=== PATIENT | female | born 1950 | race Two or more races ===

== ENCOUNTER 2017-11-06 17:03 | Emergency (ER) | payer OTHER ==
[~2017-11-06] VITALS: Ht 157.5 cm; Wt 137.9 kg
[~2017-11-06 17:03] MED LIST: CARVEDILOL3.125 MG PO; CYMBALTA20 MG PO; NEURONTIN600 MG PO; SYNTHROID150 MCG
[2017-11-06] MEDS ORDERED: METFORMIN HCL500 MG (17:32)
== END 2017-11-06 23:49 | disposition home or self-care (01) ==
LOC: ER 17:03
DX: K52.9 Noninfective gastroenteritis and colitis, unspecified (principal)

== ENCOUNTER 2019-01-24 17:47 | Outpatient (CLI) | payer OTHER ==
[~2019-01-24 17:47] MED LIST changes: +METFORMIN HCL500 MG
== END 2019-01-24 17:50 | disposition home or self-care (01) ==
LOC: LAB 17:47
DX: N30.00 Acute cystitis without hematuria (principal)

== ENCOUNTER 2019-01-27 14:12 | Outpatient (CLI) | payer OTHER | END 2019-01-27 14:18 | disposition home or self-care (01) | LOC: LAB 14:12 | DX: N39.0 Urinary tract infection, site not specified (principal); Z51.81 Encounter for therapeutic drug level monitoring ==

== ENCOUNTER 2019-01-30 10:40 | Outpatient (CLI) | payer OTHER | END 2019-01-30 16:21 | disposition home or self-care (01) | LOC: TOM 10:40 | DX: N39.0 Urinary tract infection, site not specified (principal); N39.41 Urge incontinence | CPT/HCPCS: 74178; Q9965 ==

== ENCOUNTER 2019-02-07 14:31 | Outpatient (CLI) | payer OTHER | END 2019-02-07 14:51 | disposition home or self-care (01) | LOC: LAB 14:31 | DX: N30.00 Acute cystitis without hematuria (principal) ==

== ENCOUNTER 2019-07-20 15:12 | Outpatient (CLI) | payer OTHER | END 2019-07-21 08:49 | disposition home or self-care (01) | LOC: LAB 15:12 | DX: N39.0 Urinary tract infection, site not specified (principal); B96.29 Other Escherichia coli [E. coli] as the cause of diseases classified elsewhere ==

== ENCOUNTER → 2019-08-24 13:53 | Outpatient (CLI) | payer OTHER | END | disposition home or self-care (01) | LOC: LAB 13:53 | DX: N30.00 Acute cystitis without hematuria (principal) ==

== ENCOUNTER → 2021-08-19 | Emergency (ER) | payer OTHER ==
[~2021-08-19] VITALS: Ht 157.5 cm; Wt 131.5 kg
== END | disposition home or self-care (01) ==
LOC: ER 13:04
DX: M25.512 Pain in left shoulder (principal)